=== PATIENT | male | born 2000 | race Caucasian/White ===

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

== ENCOUNTER 2019-05-15 12:31 | Emergency (ER) | payer BC, OTHER ==
[~2019-05-15] VITALS: Ht 180.3 cm; Wt 63.6 kg
[2019-05-15 12:38] VITALS: Ht 180.3 cm; Wt 63.6 kg
[2019-05-15] MEDS ORDERED: LACTATED RINGER'S 1,000 ML IV STA (12:41)
[2019-05-15] MEDS ORDERED: ONDANSETRON 4 MG INJ IV STA (12:41)
--- NOTE | 2019-05-15 13:03 | ERD ---
ER Documentation Chief Complaint Chief Complaint sz activity ~ 1min witnessed by girlfriend. no hx of sz HPI 19-year-old man brought in by EMS after having tonic-clonic seizure activity while at work witnessed by his girlfriend. He had postictal emesis and the postictal confusion and lethargy, although mental status did improve en route. Patient does have a history of drug abuse and states he uses benzodiazepines including alprazolam regularly, last use he states was 3 days ago. He had no tongue injury, no loss of bowel or bladder control. Patient denies chest pain or shortness of breath, no headache or blurry vision. Patient transported here without further complications ROS All systems reviewed and are negative except as per history of present illness. Medications Home Meds Active Scripts Levetiracetam* (Keppra*) 500 Mg Tablet, 500 MG PO BID, #60 TAB Prov:MAC MEHTA MD 05/15/19 Reported Medications [None] No Conflict Check 05/15/17 Allergies Allergies: Coded Allergies: No Known Allergy (Unverified , 05/15/17) PMhx/Soc Drug abuse History of Surgery: No Anesthesia Reaction: No Hx Neurological Disorder: No Hx Respiratory Disorders: No Hx Cardiac Disorders: No Hx Psychiatric Problems: No Hx Miscellaneous Medical Probl: No Hx Alcohol Use: Yes Hx Substance Use: Yes (OCCASIONAL MARIJUANA) Hx Tobacco Use: No FmHx Family History: No diabetes Physical Exam Vitals Vital Signs Date Temp Pulse Resp B/P (MAP) Pulse Ox O2 O2 Flow FiO2 Time Delivery Rate 05/15/19 71 18 136/81 100 Room Air 14:00 (99) 05/15/19 97.5 99 18 146/72 99 12:38 (96) Physical Exam GENERAL: Well-developed, well-nourished, appears postictal, afebrile HEENT: Moist mucous membranes, pink conjunctiva, no cervical spine tenderness or step-off deformities, no goiter, no jaundice or icterus, extraocular movements intact without pain. No submandibular induration, and no pharyngeal erythema NEURO: Alert and oriented 3, cranial nerves II through XII intact bilaterally, pupils equal round reactive to light, no focal deficits or facial asymmetry, sensation intact distally Strength 5/5 in upper and lower extremities bilaterally CARDIAC: Tachycardic and regular, no murmurs rubs or gallops LUNGS: Clear bilaterally no wheezing crackles or stridor ABDOMEN: Soft nontender, no guarding, no rigidity, no rebound, no psoas sign no obturator sign. Normoactive bowel sounds SKIN: Warm and dry to touch, no abrasions, contusions, or hematomas, no lacerations, no ecchymosis, no target lesions, and without ulcers EXTREMITIES: No clubbing cyanosis or edema, calves are bilaterally symmetrical, no Homans sign, no popliteal cord sign. Distal pulses equal and bilateral PSYCH: Normal affect without agitation or irritability Result Diagram: 05/15/19 1304 05/15/19 1304 Results 24 hrs Laboratory Tests Test 05/15/19 13:04 05/15/19 13:16 White Blood Count 5.6 10^3/ul Red Blood Count 4.95 10^6/ul Hemoglobin 14.2 g/dl Hematocrit 42.6 % Mean Corpuscular Volume 86.1 fl Mean Corpuscular Hemoglobin 28.7 pg Mean Corpuscular Hemoglobin Concent 33.3 g/dl Red Cell Distribution Width 12.7 % Platelet Count 222 10^3/UL Mean Platelet Volume 11.2 fl Immature Granulocytes % 0.500 % Neutrophils % 52.1 % Lymphocytes % 30.2 % Monocytes % 5.7 % Eosinophils % 10.6 % Basophils % 0.9 % Nucleated Red Blood Cells % 0.0 /100WBC Immature Granulocytes # 0.030 10^3/ul Neutrophils # 2.9 10^3/ul Lymphocytes # 1.7 10^3/ul Monocytes # 0.3 10^3/ul Eosinophils # 0.6 10^3/ul Basophils # 0.1 10^3/ul Nucleated Red Blood Cells # 0.0 10^3/ul Sodium Level 146 mmol/L Potassium Level 3.9 mmol/L Chloride Level 107 mmol/L Carbon Dioxide Level 24 mmol/L Anion Gap 15 Blood Urea Nitrogen 13 mg/dl Creatinine 0.96 mg/dl Est Glomerular Filtrat Rate mL/min > 60 mL/min Glucose Level 72 mg/dl Calcium Level 9.6 mg/dl Total Bilirubin 0.5 mg/dl Direct Bilirubin 0.00 mg/dl Indirect Bilirubin 0.5 mg/dl Aspartate Amino Transf (AST/SGOT) 39 IU/L Alanine Aminotransferase (ALT/SGPT) 15 IU/L Alkaline Phosphatase 81 IU/L Troponin I < 0.012 ng/ml Total Protein 8.2 g/dl Albumin 4.6 g/dl Globulin 3.60 g/dl Albumin/Globulin Ratio 1.27 Lipase 125 U/L Urine Color YELLOW Urine Clarity SLIGHTLY CLOUDY Urine pH 5.0 Urine Specific [place] 1.021 Urine Ketones NEGATIVE mg/dL Urine Nitrite NEGATIVE mg/dL Urine Bilirubin NEGATIVE mg/dL Urine Urobilinogen NEGATIVE mg/dL Urine Leukocyte Esterase NEGATIVE Courtney/ul Urine Microscopic RBC 0 /HPF Urine Microscopic WBC 1 /HPF Urine Mucus FEW /HPF Urine Hemoglobin NEGATIVE mg/dL Urine Glucose NEGATIVE mg/dL Urine Total Protein NEGATIVE mg/dl Urine Opiates Screen Negative Urine Barbiturates Negative Urine Amphetamines Screen Positive Urine Benzodiazepines Screen Positive Urine Cocaine Screen Negative Urine Cannabinoids Positive Current Medications Medications Dose Sig/Sheri Start Time Status Last (Trade) Ordered Route PRN Stop Time Admin Dose Reason Admin Lactated 1,000 ml @ Q1H STAT 05/15/19 DC 05/15/19 Ringer's 1,000 mls/hr IV 12:41 05/15/19 13:03 13:40 Ondansetron 4 mg ONCE STAT 05/15/19 DC 05/15/19 HCl (Zofran IV 12:41 05/15/19 13:02 Inj) 12:43 Procedures/MDM IV line was established patient was placed on supervisor publications production rhythm strip revealed a narrow complex tachycardia at 120 bpm with upright P and T waves. Patient was afebrile I administered 1 L LR IV and Zofran 4 mg IV. EKG performed, read by me revealed a normal sinus rhythm at 77 bpm, normal axis, right ventricular conduction delay QRS duration 108 ms, no concerning ST elevations or depressions noted Chest X-ray 1V Interpreted by me: Soft Tissue: No acute abnormalities Bones: No acute abnormalities Mediastinum/Cardiac Silhouette/Lungs: No acute abnormalities CT scan of the brain was negative for acute bleed mass or shift, old infarct noted. Patient was told that he had abnormal CT scan of the brain and would require follow-up with his primary care physician. CBC and electrolytes are normal, liver function tests were normal, troponin was negative, urinalysis was negative for infection, drug screen positive for methamphetamines Patient's mental status was completely normal here in the emergency department and vital signs were normal, I recommended against drug abuse and cautioned him about gabapentin addiction and benzodiazepine withdrawal as well as the health risks associated with methamphetamine abuse. Differential diagnoses considered, included but not limited to acute coronary sy ndrome, pulmonary embolism, aortic dissection, abdominal aortic aneurysm, sepsis, stroke, meningitis, encephalitis, pneumonia, appendicitis, cholecystitis, bowel obstruction, pyelonephritis, nephrolithiasis, cystitis, as well as metabolic, hematologic, and electrolyte abnormalities. As well as absce ss, cellulitis, fractures, and dislocations. Patient feels much better at this time, and vital signs are normal, symptoms have improved. I did give strict instructions to return to the ED if symptoms continue or worsen, patient will otherwise follow-up with primary care physician. Patient understood instructions and agreed to plan. Disclaimer: Inadvertent spelling and grammatical errors are likely due to EHR/dictation software use and do not reflect on the overall quality of patient care. Also, please note that the electronic time recorded on this note does not necessarily reflect the actual time of the patient encounter. Departure Diagnosis: Primary Impression: Methamphetamine abuse Additional Impressions: Abnormal CT scan of head Benzodiazepine withdrawal Complication of substance-induced condition: uncomplicated Qualified Codes: F13.230 - Sedative, hypnotic or anxiolytic dependence with withdrawal, uncomplicated Seizure disorder Condition: MAC Slater MD May 15, 2019 13:03
[2019-05-15] MEDS ORDERED: LEVE-5 PO (13:59)
[2019-05-15 14:00] VITALS: BP 136/81; PULSE 71; RESP 18
== END 2019-05-15 14:15 | disposition home or self-care (01) ==
LOC: E/R 12:31
DX: F15.10 Other stimulant abuse, uncomplicated (principal); R94.02 Abnormal brain scan; F13.230 Sedative, hypnotic or anxiolytic dependence with withdrawal, uncomplicated; G40.909 Epilepsy, unspecified, not intractable, without status epilepticus
CPT/HCPCS: 36415; 70450; 71045; 80053; 80307; 81001; 83690; 84484; 85025; 93005; 96374; 99285; J2405; J7120; 81003